=== PATIENT | male | born 1950 | race Caucasian/White ===

== ENCOUNTER → 2018-05-01 15:09 | Outpatient (CLI) | payer MEDICARE, OTHER, SELFPAY ==
[2018-05-01 15:35] LABS: Bacteria Urine None Seen; RBC Urine None Seen (0-5/HPF); WBC Urine None Seen (0-5/HPF)
[2018-05-01 16:05] LABS: Appearance Urine UA CLEAR; Bilirubin Urine UA NEGATIVE (NEGATIVE); Color Urine UA YELLOW; Glucose Urine UA NEGATIVE (Normal); Ketones Urine UA NEGATIVE (NEGATIVE); Leukocyte Esterase Urine UA NEGATIVE (NEGATIVE); Nitrite Urine UA Negative (Negative); Occult Blood Urine UA NEGATIVE (Negative); Protein Urine UA NEGATIVE (Negative); pH Urine UA 6.5 (4.5-8.0)
[2018-05-01 16:08] LABS: Add Manual Diff / Slide Review NO; Basophils Percent Auto 0.9 % (0-2); Eosinophils Percent Auto 4.8 % (2-4); Hematocrit 42.2 % (41-53); Hemoglobin 14.1 g/dL (13.5-17.5); Lymphocytes Percent Auto 34.8 % (25-40); Mean Corpuscular HGB Conc 33.5 % (30-36); Mean Corpuscular Volume 89.5 fL (80-100); Monocytes Percent Auto 8.5 % (3-14); Neutrophils Absolute Auto 3000 /uL (3000-5900); Platelet Count 280 X10^3/uL (150-400); Red Blood Cell Count 4.71 X10^6/uL (4.5-5.9); Red Cell Distribution Width 13.2 % (11.6-14.8)
[2018-05-01 16:11] LABS: Hemoglobin A1C% w Est Avg Glu 5.3 % (4.0-6.0)
[2018-05-01 16:13] LABS: Culture Indicated Urine Cult Not Indicated; Urine Comments Microscopic Normal
[2018-05-01 16:41] LABS: Alanine Aminotransferase 43 IU/L (21-72); Albumin 4.3 g/dL (3.5-5.0); Albumin Globulin Ratio 1.4 (1.0-2.8); Alkaline Phosphatase 77 U/L (38-126); Aspartate Aminotransferase 28 IU/L (17-59); BUN Creatinine Ratio 21.4 (6-22); Bilirubin Total 0.5 mg/dL (0.2-1.3); Blood Urea Nitrogen 15 mg/dL (9-20); Calcium 9.7 mg/dL (8.4-10.2); Carbon Dioxide 29 mmol/L (22-32); Chloride 102 mmol/L (98-107); Estimated Glomerular Filt Rate > 60.0 mL/min (>60); Glucose 83 mg/dL (80-110); HEMOLYSIS < 15 (0-50); Potassium 4.4 mmol/L (3.4-5.1); Sodium 141 mmol/L (137-145); Total Protein 7.3 g/dL (6.3-8.2)
== END ==
PROVIDERS: PCP Family Medicine; Visit Provider Physician Assistant Surgical
DX: Z01.818 Encounter for other preprocedural examination (principal)
CPT/HCPCS: 36415; 80053; 81001; 83036; 85025; 93005

== ENCOUNTER 2018-05-07 06:44 | Day surgery (SDC) | payer MEDICARE, OTHER, SELFPAY ==
[2018-05-01 08:18] VITALS: BMI 34.8
[2018-05-07] VITALS (10 sets, daily range): BP systolic 131–180; BP diastolic 53–91; PULSE 58–78; RESP 10–17; TEMP 36.4–36.7; O2SAT 93–99; BMI 34.0
[2018-05-07] MEDS: VANCOMYCIN 1,000 MG/200 ML FROZ.PIGGY 133.333 MG IV (07:06)
[2018-05-07] MEDS: ACETAMINOPHEN 325 MG TABLET 975 MG PO (07:25)
[2018-05-07] MEDS: CELECOXIB 200 MG CAPSULE PO (07:26)
[2018-05-07] MEDS: LACTATED RINGERS 1,000 ML 42 ML IV (07:51)
[2018-05-07] MEDS: CEFAZOLIN 2 GM/100 ML FROZ.PIGGY IV (08:15)
[2018-05-07] MEDS: TRANEXAMIC ACID 1,000 MG VIAL 1000 MG INJ (08:35)
--- NOTE | 2018-05-07 08:53 | SUR.OPER ---
Supine on padded OR bed. Pillow under head, arms secured on padded armboards <90 degree abduction. Safety belt across torso. Non-operative leg secured with tape over blanket over lower leg. Operative leg secured in DeMayo/Jim positioner. Foam padded brace at thigh of operative leg.
[2018-05-07] MEDS: BUPIVACAINE 0.25% W/ EPI 50 ML VIAL INJ (09:00)
[2018-05-07] MEDS: BUPIVACAINE LIPOSOME 266 MG/20 ML VIAL INJ (09:00)
[2018-05-07] MEDS: POVIDONE-IODINE 15 ML, SODIUM CHLORIDE 0.9% 250 ML TOP (09:03)
[2018-05-07] MEDS: TRANEXAMIC ACID 1,000 MG VIAL 1000 MG IV (09:51)
[2018-05-07] MEDS: fentaNYL 100 MCG/2 ML INJ 50 MCG IV (10:28)
[2018-05-07] MEDS: OXYCODONE IR 5 MG TABLET PO (12:40)
--- NOTE | 2018-05-07 12:57 | PC.NURSE ---
Pt brought to the Acute Care floor at approx. 1100. He is A & Ox3. Aquacell dressing to right knee wrapped with KRISHNA bandage and CDI. Ice bag applied. Pt has been oriented to his room.
--- NOTE | 2018-05-07 15:26 | PM.PREOP ---
Pre-operative Note Interval Note Pre-op Check: History & Physical Reviewed by Physician
--- NOTE | 2018-05-07 15:26 | PM.OP.1 ---
Operative Date/Time/Diagnoses - Date of procedure: 05/07/18 Time of procedure: 08:05 Pre-op diagnosis: right knee medial OA Post-op diagnosis: same Procedure & Clinicians Procedure: right knee medial unicompartment OA Same procedure as scheduled: Yes Indications: The patient has had progressively worsening right knee pain with radiographic changes consistent with arthritis. Non-operative management has failed and the patient has requested unicompartment knee replacement. The risks, benefits and alternatives to surgery were discussed with the patient prior to proceeding. Risks discussed included, but were not limited to, failure to relieve pain, stiffness, infection, nerve damage, deep venous thrombosis, pulmonary embolism, stroke, coma, heart attack, permanent paralysis and , as well as the potential need for eventual revision of the prosthetic. Surgeon: Laure Valdez Iuss Master Analyst: Mercy Nunez Anesthesia Type: Spinal Operative Notes Findings: severe medial OA essentially no patellofemoral or lateral compartment OA noted Closure Type: primary Specimen(s): none sent Implants & Drains: right knee ZUK medial uni femur , tibia 5, +8 poly Estimated Blood Loss (mL): 200 Blood products transfused: none Tourniquet time (min): 72 Procedure in detail: The patient was seen in the pre-operative area, where the right knee was identified as the operative site and this was marked with my initials. The patient received pre-operative antibiotics, and was taken to the operating room and placed on the operative table in the supine position. After satisfactory anesthesia, a multimedia educational specialist out was performed. The right leg was encircled with a tourniquet about the proximal thigh, and the leg was prepared from the toes to the tourniquet with ChloroPrep in the usual fashion and draped through sterile drapes. The leg was elevated and exsanguinated with Eschmark bandage and the tourniquet inflated to [250] mmHg pressure. The knee was approached through an approximately 10 cm incision medial parapatella incision and carried into the knee through a medial parapatellar arthrotomy. The osteophytes and medial meniscus were removed. Next, a small amount of the anterior tibial boss was carefully resected with a saw. The guide was placed along the medial joint line. It was meticulously adjusted to make sure there was appropriate slope that it was at the joint line and then was pinned to the tibia and the femur. The medial femoral condylar cut was made in extension. The tibial cut was made in flexion. The bone was meticulously irrigated with normal saline. Small amount of additional meniscus was resected posterior capsule was checked and injected with Marcaine. The extension gap was carefully checked with an 8 mm gap audio visual design engineer was noted that it fit well. A small number of additional osteophytes were resected. The tibia was a size [5]. It was noted that it fit without overhang. The femur was sized and it was noted to be a [E]. The appropriate cutting guide was pinned into place and carefully positioned on the femoral condyle. Drill holes were placed. The tibia was pinned into place and drill holes were made. Trial reduction with the appropriate poly showed full range of motion and good stability at 0, 45. and 90? with normal tracking of the components without edge loading. The bone was meticulously irrigated and dried. Additional Marcaine was injected. The posterior capsule was injected with 0.25% Marcaine mixed with 20 ml Exparel for post-operative pain control. The remainder of this mixture was injected into the capsule and subcutaneous tissues during cement curing. Range of motion was [0-130], with good stability throughout the range. The trials were then remove. The cement was as applied and the final prosthetics placed. Excess cement was removed during and after cement curing. A brief medial compartment Betadine soak was performed. After confirming there was no extruded cement posteriorly, the final tibial insert was placed. The knee was copiously irrigated and the tourniquet deflated. Hemostasis was obtained. The capsule was closed with interrupted # 1 black braided nylon. The subcutaneous tissue was closed with barbed sutures. The skin with a running 3-0 V-Lock suture and surgical glue. An Aquacel Ag dressing was applied and the patient was taken to recovery having tolerated the procedure well. Complications: none Condition: stable Disposition: Acute Care Plan for aftercare: The patient will be maintained on a standard medial Uni knee replacement protocol with weight bearing as tolerated. The patient will receive aspirin for DVT prophylaxis. The patient will be discharged home when safe for the home environment.
--- NOTE | 2018-05-07 15:33 | P.OP_ITS ---
Operative Date/Time/Diagnoses - Date of procedure: 05/07/18 Time of procedure: 08:05 Pre-op diagnosis: right knee medial OA Post-op diagnosis: same Procedure & Clinicians Procedure: right knee medial unicompartment OA Same procedure as scheduled: Yes Indications: The patient has had progressively worsening right knee pain with radiographic changes consistent with arthritis. Non-operative management has failed and the patient has requested unicompartment knee replacement. The risks , benefits and alternatives to surgery were discussed with the patient prior to proceeding. Risks discussed included, but were not limited to, failure to relieve pain, stiffness, infection, nerve damage, deep venous thrombosis, pulmonary embolism, stroke, coma, heart attack, permanent paralysis and , as well as the potential need for eventual revision of the prosthetic. Surgeon: Laure Valdez Hand Tier: Mercy Nunez Anesthesia Type: Spinal Operative Notes Findings: severe medial OA essentially no patellofemoral or lateral compartment OA noted Closure Type: primary Specimen(s): none sent Implants & Drains: right knee ZUK medial uni femur , tibia 5, +8 poly Estimated Blood Loss (mL): 200 Blood products transfused: none Tourniquet time (min): 72 Procedure in detail: The patient was seen in the pre-operative area, where the right knee was identified as the operative site and this was marked with my initials. The patient received pre-operative antibiotics, and was taken to the operating room and placed on the operative table in the supine position. After satisfactory anesthesia, a daytime babysitter out was performed. The right leg was encircled with a tourniquet about the proximal thigh, and the leg was prepared from the toes to the tourniquet with ChloroPrep in the usual fashion and draped through sterile drapes. The leg was elevated and exsanguinated with Eschmark bandage and the tourniquet inflated to [250] mmHg pressure. The knee was approached through an approximately 10 cm incision medial parapatella incision and carried into the knee through a medial parapatellar arthrotomy. The osteophytes and medial meniscus were removed. Next, a small amount of the anterior tibial boss was carefully resected with a saw. The guide was placed along the medial joint line. It was meticulously adjusted to make sure there was appropriate slope that it was at the joint line and then was pinned to the tibia and the femur. The medial femoral condylar cut was made in extension. The tibial cut was made in flexion. The bone was meticulously irrigated with normal saline. Small amount of additional meniscus was resected posterior capsule was checked and injected with Marcaine. The extension gap was carefully checked with an 8 mm gap clay puddler was noted that it fit well. A small number of additional osteophytes were resected. The tibia was a size [5]. It was noted that it fit without overhang. The femur was sized and it was noted to be a [E]. The appropriate cutting guide was pinned into place and carefully positioned on the femoral condyle. Drill holes were placed. The tibia was pinned into place and drill holes were made. Trial reduction with the appropriate poly showed full range of motion and good stability at 0, 45. and 90? with normal tracking of the components without edge loading. The bone was meticulously irrigated and dried. Additional Marcaine was injected. The posterior capsule was injected with 0.25% Marcaine mixed with 20 ml Exparel for post-operative pain control. The remainder of this mixture was injected into the capsule and subcutaneous tissues during cement curing. Range of motion was [0-130], with good stability throughout the range. The trials were then remove. The cement was as applied and the final prosthetics placed. Excess cement was removed during and after cement curing. A brief medial compartment Betadine soak was performed. After confirming there was no extruded cement posteriorly, the final tibial insert was placed. The knee was copiously irrigated and the tourniquet deflated. Hemostasis was obtained. The capsule was closed with interrupted # 1 black braided nylon. The subcutaneous tissue was closed with barbed sutures. The skin with a running 3- 0 V-Lock suture and surgical glue. An Aquacel Ag dressing was applied and the patient was taken to recovery having tolerated the procedure well. Complications: none Condition: stable Disposition: Acute Care Plan for aftercare: The patient will be maintained on a standard medial Uni knee replacement protocol with weight bearing as tolerated. The patient will receive aspirin for DVT prophylaxis. The patient will be discharged home when safe for the home environment.
--- NOTE | 2018-05-07 15:56 | PT.IIE ---
Current Diagnoses Unilateral primary osteoarthritis, right knee (05/07/18) Surgery Performed Operation Date: 05/07/18 07:45 Actual Procedures p Total Knee Arthroplasty(Right) - Laure Valdez MD Surgical History (Last Updated 05/01/18 @ 08:32 by Lara Pressley, RN) History of shoulder surgery (Acute) Hx of arthroscopy of left knee (Acute) Hx of removal of cyst (Acute) Hx of tonsillectomy (Acute) Medical History (Last Updated 05/01/18 @ 08:46 by Lara Pressley RN) Arthritis (Acute) Brain aneurysm (Acute) Chronic neck and back pain (Acute) HTN (hypertension) (Acute) Hx of fracture of nose (Acute) Kidney stone (Acute) Psoriasis (Acute) Sciatica (Acute) Sleep apnea with use of continuous positive airway pressure (CPAP) (Acute) Physical Therapy Inpatient Evaluation/Re-Eval M1 PT/OT-IP Prior Functional Status Start: 05/07/18 15:41 Freq: NEEDED Status: Active Protocol: Document 05/07/18 15:42 IJS (Rec: 05/07/18 15:55 IJS [id number]) Medical Review Prior Functional Status Medical History Reviewed Yes Diet/Fluid Consistency Regular Mobility and Gait Independent without assistive device. Activities of Daily Living and IADL's Assist needed for right shoe/ sock. Prior Functional Level (Other details) Difficulty with driving hoping this will help. Social History Household Members spouse Living Arrangements House Number of Floors (Floors) One Floor Number of Stairs To Enter/Railing? 5 steps to enter with 2 rails, declined to practice stairs here in the hospital. Has been living with knee pain for 3 years. Home Environment Standard Height Toilet Employment Status [employer] Employ[employer] Additional Social History Comment Has a standard product picker walker borrowed. 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 M2 PT-IP Current Condition Start: 05/07/18 15:41 Freq: NEEDED Status: Active Protocol: Document 05/07/18 15:42 IJS (Rec: 05/07/18 15:55 IJS [id number]) Physical Therapy Current Condition Current Condition Evaluation Date 05/07/18 Treatment Diagnosis Uni knee right Onset Date 05/07/18 Weight Bearing Status Weight Bearing Status Weight Bear as Tolerated M3 PT-IP Subjective Start: 07/05/18 15:41 Freq: NEEDED Status: Active Protocol: Document 05/07/18 15:42 IJS (Rec: 05/07/18 15:55 IJS [id number]) Subjective Physical Therapy Visit Type Type Initial Evaluation Visit Start Time 15:20 Visit Stop Time 15:40 Total Visit Minutes 20 Number of RADIOLOGY DIRECTOR Visits 0 Physical Therapy Visit Comments Patient Comments Wants to go home. Patient/Caregiver Goals To have greater ease with driving and be able to put on his shoe/sock on the right. Therapy Pain Assessment Pain Present Pain Present Pain Reported Location Right Lower Leg Description Tightness M4 PT-IP Mobility and Gait Start: 05/07/18 15:41 Freq: NEEDED Status: Active Protocol: Document 05/07/18 15:42 IJS (Rec: 05/07/18 15:55 IJS [id number]) PT-Bed Mobility Assessment Supine to Sit Supine to Sit Independent Sit to Supine Sit to Supine Independent Scooting Scooting to Edge of Bed Independent PT-Transfer Assessment Sit to and From Stand Sit to and from Stand Independent Standby Assistance Equipment Transfer Assistive Device Standard Walker Orthotic/Prosthetic Devices or Brace: No Transfers Transfer Destination Chair Transfer Technique Stand Step Pivot Transfer Ability Level of Assist Independent Standby Assistance Gait Assessment Gait Gait Assistance Required: Independent Standby Assistance Distance (Feet) (feet) 100 Able to Maintain Weight Bearing Status Yes During Gait Assistive Devices Assistive Device Gait Belt Standard Walker Gait Deviations General Gait Pattern Antalgic Decreased Stride Length Factors Limiting Gait Function Factors Limiting Gait Function Limited Range of Motion Comments Gait Comments Stable with product picker walker, most discomfort is from the incision. Stair Climbing Assessment Comments Stair Climbing Comments Declined PT-Balance Assessment Sitting Balance and Reactions Static Sitting Balance Ability Normal Dynamic Sitting Balance Ability Normal Standing Balance and Reactions Static Standing Balance Ability Normal Dynamic Standing Balance Ability Good M5 PT-IP Objective Assessments Start: 05/07/18 15:41 Freq: NEEDED Status: Active Protocol: Document 05/07/18 15:42 IJS (Rec: 05/07/18 15:55 IJS [id number]) Orientation Orientation/Cognition Level of Alertness Alert Orientation Name Age Birthday Month Date Year Day of Week Place Situation Language Function Ability No Deficits Noted Safety Awareness Understands Safety Issues Memory Description No Deficits Noted Gross Range of Motion Upper Extremity ROM Assessment Within Functional Limits Lower Extremity ROM Assessment Right Impaired Impairments 15-80 degrees Strength Upper Extremity Strength Assessment Within Functional Limits Lower Extremity Strength Assessment Within Functional Limits Knee able to SLR and do heel slides . Coordination Assessment Gross Coordination Gross Coordination WNL Sensation Assessment Sensation Gross Sensation WNL Muscle Tone Muscle Tone WNL Yes Other Assessments Other Other Assessments Day of surgery ready and safe to return home. M6 PT-IP Treatment Start: 05/07/18 15:41 Freq: NEEDED Status: Active Protocol: Document 05/07/18 15:42 IJS (Rec: 05/07/18 15:55 IJS [id number]) Physical Therapy Treatment Exercises Exercises Ankle Pumps Heel Slides Straight Leg Raises Education Education Provided Post-Op Packet M7 PT-IP Assessment and Plan Start: 05/07/18 15:41 Freq: NEEDED Status: Active Protocol: Document 05/07/18 15:42 IJS (Rec: 05/07/18 15:55 IJS [id number]) PT Summary Assessment and Plan Potential Rehabilitation Potential Excellent Status of Condition at Evaluation Stable Summary Progress Towards Goals Safe For Discharge Frequency of Treatment Frequency Of Treatment Discharge Recommendations To Nursing Amount of Assist Needed Independent Standby Assistance Discharge Recommendations PT Discharge Recommendations Home Outpatient PT Equipment Needed for Home Before Has a walker Discharge
== END 2018-05-07 16:13 | disposition home or self-care (01) ==
LOC: OR 06:45 → AC 10:52
PROVIDERS: PCP Family Medicine; Visit Provider Orthopaedic Surgery
PROC: 0SRC0JZ Replacement of Right Knee Joint with Synthetic Substitute, Open Approach (ICD-10-PCS; CPT 27447; principal; 2018-05-07 07:45)
DX: M17.11 Unilateral primary osteoarthritis, right knee (principal); G47.33 Obstructive sleep apnea (adult) (pediatric); E66.9 Obesity, unspecified; I10 Essential (primary) hypertension; E78.5 Hyperlipidemia, unspecified; M19.91 Primary osteoarthritis, unspecified site
CPT/HCPCS: 27446; 97161; C1776; C9290; J0690; J1100; J2250; J2405; J2704; J3010; J3370